=== PATIENT | male | born 1980 | race Caucasian/White ===

== ENCOUNTER 2019-01-14 10:31 | Emergency (ER) | payer MEDICAID ==
[~2019-01-14] VITALS: Ht 165.1 cm; Wt 66.9 kg
[2019-01-14 10:55] VITALS: Ht 165.1 cm; Wt 66.9 kg
[2019-01-14] MEDS ORDERED: LORA10TA3 PO (11:45)
[2019-01-14] MEDS ORDERED: IBUP-1542 PO (11:45)
[2019-01-14] MEDS ORDERED: ALBU8.5H8 INH (11:45)
--- NOTE | 2019-01-14 11:56 | ERD ---
ER Documentation Chief Complaint Chief Complaint SINUS PRESSSURE AND PHLEGM, DIFFICULTY CLEARING X2 MONTHS HPI 38-year-old man complains of 2 months frontal sinus congestion, nasal congesti on, dry cough. He denies fevers or chills, no weight loss, no headache or blurry vision, no nausea or vomiting, no chest pain or shortness of breath ROS All systems reviewed and are negative except as per history of present illness. Medications Home Meds Active Scripts Albuterol Sulfate* (Proair HFA*) 8.5 Gm Hfa.aer.ad, 2 PUFF INH Q6H PRN for WHEEZING AND SOB, #1 INHALER Prov:SALONI RAE MD 01/14/19 Ibuprofen* (Motrin*) 600 Mg Tab, 600 MG PO Q8 PRN for PAIN AND/OR INFLAMMATION, #30 TAB Prov:SALONI RAE MD 01/14/19 Loratadine* (Loratadine*) 10 Mg Tablet, 10 MG PO DAILY PRN for NASAL CONGESTION, #15 TAB Prov:SALONI RAE MD 01/14/19 FmHx Family History: No diabetes Physical Exam Vitals Vital Signs Date Temp Pulse Resp B/P (MAP) Pulse Ox O2 O2 Flow FiO2 Time Delivery Rate 01/14/19 98.1 96 16 147/86 99 10:55 (106) Physical Exam Const: No acute distress, afebrile Head: Atraumatic Eyes: Normal Conjunctiva ENT: Normal External Ears, Nose and Mouth. Neck: Full range of motion. No meningismus. Resp: Clear to auscultation bilaterally Cardio: Regular rate and rhythm, no murmurs Abd: Soft, non tender, non distended. Normal bowel sounds Skin: No petechiae or rashes Back: No midline or flank tenderness Ext: No cyanosis, or edema Neur: Awake and alert x3, no focal deficits or facial asymmetry Psych: Normal Mood and Affect Procedures/MDM Reassurance was provided to the patient, he has normal vital signs and a normal exam although he does exhibit some mild nasal congestion so I will give him some medications for his congestion and mild dry cough he has had for the last 2 months. Patient feels much better at this time, and vital signs are normal, symptoms have improved. I did give strict instructions to return to the ED if symptoms continue or worsen, patient will otherwise follow-up with primary care physician. Patient understood instructions and agreed to plan. Disclaimer: Inadvertent spelling and grammatical errors are likely due to EHR/dictation software use and do not reflect on the overall quality of patient care. Also, please note that the electronic time recorded on this note does not necessarily reflect the actual time of the patient encounter. Departure Diagnosis: Primary Impression: Nasal congestion Additional Impression: Acute URI Condition: Good Patient Instructions: Sinus Headache, Uri, Viral, No Abx (Adult) SALONI RAE MD January 14, 2019 11:56
== END 2019-01-14 13:44 | disposition home or self-care (01) ==
LOC: FTE 10:31
DX: J06.9 Acute upper respiratory infection, unspecified (principal)
CPT/HCPCS: 99283

== ENCOUNTER 2019-02-10 13:12 | Emergency (ER) | payer MEDICAID ==
[~2019-02-10] VITALS: Wt 66.5 kg
[~2019-02-10 13:12] MED LIST: ALBU8.5H8 INH; IBUP-1542 PO; LORA10TA3 PO
[2019-02-10 13:14] VITALS: BP 125/82; PULSE 89; RESP 18
[2019-02-10] MEDS ORDERED: LOPE2CAP PO (13:35)
[2019-02-10] MEDS ORDERED: HC30CR25 TOP (13:35)
--- NOTE | 2019-02-10 13:40 | ERD ---
ER Documentation Chief Complaint Chief Complaint LOOSE STOOLS X 2 A DAY X 1 MOS HPI 38-year-old male presenting to the ER for 2 episodes of diarrhea that occurred today. Patient denies nausea vomiting abdominal pain. Patient states there was no blood in his stool. She is not having any urinary symptoms. Patient just states that he had 2 episodes of diarrhea and that he wants a medication to help it stop. Patient denies any allergies to medication. Patient denies any past medical history and is not currently taking any medications ROS All systems reviewed and are negative except as per history of present illness. Medications Home Meds Active Scripts Hydrocortisone* Topical (Hydrocortisone* Topical) 2.5%-28.3 Gm Cream..g., 1 APPLIC TOP BID, #1 TUB Prov:CHARISSA MARCELINO PA-C 02/10/19 Loperamide Hcl* (Imodium*) 2 Mg Capsule, 2 MG PO .AFTER EA LOOSE BM PRN for DIARRHEA, #10 TAB Prov:CHARISSA MARCELINO PA-C 02/10/19 Albuterol Sulfate* (Proair HFA*) 8.5 Gm Hfa.aer.ad, 2 PUFF INH Q6H PRN for WHEEZING AND SOB, #1 INHALER Prov:SALONI RAE MD 01/14/19 Ibuprofen* (Motrin*) 600 Mg Tab, 600 MG PO Q8 PRN for PAIN AND/OR INFLAMMATION, #30 TAB Prov:SALONI RAE MD 01/14/19 Loratadine* (Loratadine*) 10 Mg Tablet, 10 MG PO DAILY PRN for NASAL CONGESTION, #15 TAB Prov:SALONI RAE MD 01/14/19 PMhx/Soc Hx Alcohol Use: No Hx Substance Use: No Hx Tobacco Use: No Physical Exam Vitals Vital Signs Date Temp Pulse Resp B/P (MAP) Pulse Ox O2 O2 Flow FiO2 Time Delivery Rate 02/10/19 99.0 89 18 125/82 99 13:14 (96) Physical Exam Const: No acute distress Head: Atraumatic Eyes: Normal Conjunctiva ENT: Normal External Ears, Nose and Mouth. Neck: Full range of motion. No meningismus. Resp: Clear to auscultation bilaterally Cardio: Regular rate and rhythm, no murmurs Abd: Soft, non tender, non distended. Normal bowel sounds Skin: No petechiae or rashes Back: No midline or flank tenderness Ext: No cyanosis, or edema Neur: Awake and alert Psych: Normal Mood and Affect Procedures/MDM Medical decision makin-year-old male presenting ER for 2 episodes of diarrhea today. Patient denies any blood in the stool, patient is denies fever chills back pain. Patient denies urinary symptoms. Patient states he only had 2 episodes and he has been able to hold fluids down and he still has appetite. Physical exam was unremarkable patient's abdominal area was soft nontender to palpation, patient had no CVA tenderness. I have low suspicion for coronary syndrome, AAA, mesenteric ischemia, lower lobe pneumonia, DKA, bowel perforation, ch olecystitis, choledocholithiasis, ascending cholangitis, hepatic abscess, pancreatitis, PUD, gastritis, GERD, splenic rupture, diverticulitis, UTI, pyelonephritis, nephrolithiasis, appendicitis, constipation, testicular torsion, epididymitis, urethritis, or prostatitis, ulcerative colitis. Patient also stated that he has mild skin irritation upon physical examination there is no d iscoloration to the skin patient is pointing to the top of his eyebrows. This time of low suspicion for allergic reaction, cellulitis, systemic infection. There is no lesions noted. The patient stated that he had hydrocortisone cream and it helps for a time. Patient was advised if symptoms worsen return to ER immediately otherwise follow-up with his primary care provider in 1 to 2 days regarding this visit. Patient was in agreement to the treatment plan had no further questions on discharge Prescription for home: Imodium Hydrocortisone topical Discharge: At this time, patient is stable for discharge and outpatient management. I have instructed the patient to follow-up with his\her primary care physician in 1 to 2 days. I have discussed with the patient the possibility of needing to see a specialist for further work-up and imaging studies if symptoms persist. I have instructed the patient to promptly return to the ER for any new or worsening symptoms including increased pain, fever, nausea, vomiting, weakness or LOC. The patient and\or family expressed understanding of and agreement with this plan. All questions were answered. Home care instructions were provided. Disclaimer: Inadvertent spelling and grammatical errors are likely due to EHR\dictation software use and do not reflect on the overall quality of patient care. Also, please note that the electronic time recorded on the note does not necessarily reflect the actual time of the patient encounter. Departure Diagnosis: Primary Impression: Diarrhea Diarrhea type: unspecified type Qualified Codes: R19.7 - Diarrhea, unspecified Condition: Stable Patient Instructions: Self-Care for Vomiting and Diarrhea Referrals: [facility] YOU HAVE RECEIVED A MEDICAL SCREENING EXAM AND THE RESULTS INDICATE THAT YOU DO NOT HAVE A CONDITION THAT REQUIRES URGENT TREATMENT IN THE EMERGENCY DEPARTMENT. FURTHER EVALUATION AND TREATMENT OF YOUR CONDITION CAN WAIT UNTIL YOU ARE SEEN IN YOUR DOCTORS OFFICE WITHIN THE NEXT 1-2 DAYS. IT IS YOUR RESPONSIBILITY TO MAKE AN APPOINTMENT FOR FOLOW-UP CARE. IF YOU HAVE A PRIMARY DOCTOR --you should call your primary doctor and schedule an appointment IF YOU DO NOT HAVE A PRIMARY DOCTOR YOU CAN CALL OUR PHYSICIAN REFERRAL HOTLINE AT IF YOU CAN NOT AFFORD TO SEE A PHYSICIAN YOU CAN CHOSE FROM THE FOLLOWING [facility] [address] [facility] [address] [facility] [address] [facility] [address] [facility] [address] [facility] [facility] [address] [facility] [facility] YOU HAVE RECEIVED A MEDICAL SCREENING EXAM AND THE RESULTS INDICATE THAT YOU DO NOT HAVE A CONDITION THAT REQUIRES URGENT TREATMENT IN THE EMERGENCY DEPARTMENT. FURTHER EVALUATION AND TREATMENT OF YOUR CONDITION CAN WAIT UNTIL YOU ARE SEEN IN YOUR DOCTORS OFFICE WITHIN THE NEXT 1-2 DAYS. IT IS YOUR RESPONSIBILITY TO MAKE AN APPOINTMENT FOR FOLOW-UP CARE. IF YOU HAVE A PRIMARY DOCTOR --you should call your primary doctor and schedule and appointment IF YOU DO NOT HAVE A PRIMARY DOCTOR YOU CAN CALL OUR PHYSICIAN REFERRAL HOTLINE AT . IF YOU CAN NOT AFFORD TO SEE A PHYSICIAN YOU CAN CHOSE FROM THE FOLLOWING [facility] INSTITUTIONS: [facility] [address] [place] [address] [facility] [address] [place] [address] [facility] + [facility] [address] [place] [address] Additional Instructions: Follow-up with primary care provider 1 to 2 days regarding this visit if symptoms worsen return the ER immediately CHARISSA MARCELINO PA-C Feb 10, 2019 13:40
== END 2019-02-10 13:57 | disposition home or self-care (01) ==
LOC: FTE 13:12
DX: R19.7 Diarrhea, unspecified (principal)
CPT/HCPCS: 99282